=== PATIENT | male | born 1955 | race Hispanic/Latino ===

== ENCOUNTER → 2018-11-24 | Outpatient (CLI) | payer MEDICARE | END | disposition home or self-care (01) | LOC: SHCH 15:32 | PROVIDERS: ATTEND Internal Medicine Cardiovascular Disease | DX: I25.10 Atherosclerotic heart disease of native coronary artery without angina pectoris (principal); I10 Essential (primary) hypertension; I35.0 Nonrheumatic aortic (valve) stenosis | CPT/HCPCS: 93306 ==

== ENCOUNTER 2019-01-11 05:54 | Observation (INO) | payer MEDICARE ==
[2019-01-09 08:27] LABS: BASOPHILS % (AUTO) 0.7 % (0.0-5.0); EOSINOPHILS % (AUTO) 1.2 % (0.0-8.0); LYMPHOCYTES % (AUTO) 17.9 % (21.0-51.0); MEAN CORPUSCULAR HEMOGLOBIN 33.8 pg (27.0-33.0); MEAN CORPUSCULAR HGB CONC 34.1 g/dL (32.0-36.0); MEAN CORPUSCULAR VOLUME 99.1 fL (79-99); NEUTROPHILS % (AUTO) 72.2 % (40.0-77.0); NUCLEATED RED BLOOD CELLS 0.1 % (0.0-0.19); PLATELET COUNT (AUTO) 192 K/uL (130-400); RED BLOOD CELL COUNT(AUTO) 5.25 MIL/uL (4.50-6.20); RED CELL DISTRIBUTION WIDTH 14.1 % (11.0-15.5); WHITE BLOOD COUNT (AUTO) 10.1 K/uL (4.8-10.8)
[2019-01-09 08:30] LABS: APPEARANCE,URINE Clear (CLEAR); BILIRUBIN,URINE Negative (NEGATIVE); COLOR,URINE Yellow (YELLOW); GLUCOSE, URINE (UA) Negative (NEGATIVE); KETONES,URINE Negative (NEGATIVE); LEUKOCYTE ESTERASE ,URINE Negative (NEGATIVE); NITRATE,URINE Negative (NEGATIVE); OCCULT BLOOD,URINE Negative (NEGATIVE); PH,URINE 5.5 (5.0-8.0); PROTEIN,URINE Negative (NEGATIVE)
[2019-01-09 08:37] LABS: CREATININE 0.9 mg/dL (0.5-1.5); POTASSIUM 4.5 mmol/L (3.5-5.1)
[2019-01-09 08:40] LABS: PROTHROMBIN TIME 10.5 SEC (9.6-11.6)
[2019-01-09 09:09] VITALS: BP 134/63
[2019-01-11] VITALS (14 sets, daily range): BP systolic 114–142; BP diastolic 63–75
[~2019-01-11] VITALS: Ht 177.8 cm; Wt 87.9 kg
[~2019-01-11 05:54] MED LIST: ASPI-555 PO; ATOR10TA69 PO; SODIUM CHLORIDE 0.9% 500ML 500 ML IV SCH
[2019-01-11] MEDS ORDERED: SODIUM CHLORIDE 0.9% 1000ML 1,000 ML IV ONE (07:30)
[2019-01-11] MEDS ORDERED: IOHEXOL-350 50ML VIAL IV ONE (08:39)
[2019-01-11] MEDS ORDERED: IOHEXOL 350 MG/ML 100ML INFUS..BTL IV ONE (08:39)
[2019-01-11] MEDS ORDERED: LIDOCAINE HCL 2% 20ML ONE (08:39)
[2019-01-11] MEDS ORDERED: HEPARIN SODIUM 1000UNIT/ML 10ML VIAL ONE (08:39)
[2019-01-11] MEDS ORDERED: ASPIRIN 325MG EC TAB 325 MG TABLET.DR PO ONE (10:20)
[2019-01-11] MEDS ORDERED: CLOPIDOGREL BISULFATE 300 MG TAB ONE (10:20)
[2019-01-11] MEDS ORDERED: MORPHINE SULFATE 5 MG/ML VIAL IVP SCH (10:30)
[2019-01-11] MEDS ORDERED: ONDANSETRON HCL 4 MG/2 ML VIAL IVP SCH (10:30)
[2019-01-11] MEDS ORDERED: TEMAZEPAM 30 MG CAP PO PRN (10:30)
[2019-01-11] MEDS ORDERED: ONDANSETRON HCL 4 MG/2 ML VIAL IVP PRN (10:30)
[2019-01-11] MEDS ORDERED: ACETAMINOPHEN 325 MG TAB PO PRN (10:30)
[2019-01-11] MEDS ORDERED: ACETAMINOPHEN-CODEINE 300/30MG TAB PO SCH (12:13)
[2019-01-11] MEDS: CARVEDILOL 6.25 MG TABLET PO SCH (20:23)
[2019-01-11] MEDS ORDERED: ASPIRIN 81 MG EC TAB PO SCH (21:00)
[2019-01-11] MEDS ORDERED: ATORVASTATIN CALCIUM 10 MG TABLET PO SCH (21:00)
[2019-01-12 04:07] LABS: BASOPHILS % (AUTO) 0.7 % (0.0-5.0); EOSINOPHILS % (AUTO) 3.5 % (0.0-8.0); HEMATOCRIT 48.1 % (42-54); LYMPHOCYTES % (AUTO) 14.6 % (21.0-51.0); MEAN CORPUSCULAR HEMOGLOBIN 33.8 pg (27.0-33.0); MEAN CORPUSCULAR HGB CONC 33.8 g/dL (32.0-36.0); MEAN CORPUSCULAR VOLUME 99.9 fL (79-99); MONOCYTES % (AUTO) 9.8 % (3.0-13.0); NEUTROPHILS % (AUTO) 71.4 % (40.0-77.0); PLATELET COUNT (AUTO) 166 K/uL (130-400); RED BLOOD CELL COUNT(AUTO) 4.81 MIL/uL (4.50-6.20); RED CELL DISTRIBUTION WIDTH 13.7 % (11.0-15.5); WHITE BLOOD COUNT (AUTO) 11.9 K/uL (4.8-10.8)
[2019-01-12 04:27] LABS: CREATININE 0.9 mg/dL (0.5-1.5); MAGNESIUM 2.1 mg/dL (1.80-2.40); PHOSPHORUS 2.9 mg/dL (2.5-4.9)
[2019-01-12 04:40] VITALS: BP 111/64
[2019-01-12 07:47] VITALS: BP 110/63
[2019-01-12] MEDS ORDERED: CLOPIDOGREL BISULFATE 75 MG TAB PO SCH (09:00)
[2019-01-12 09:14] VITALS: BP 110/63
[2019-01-12] MEDS: CARVEDILOL 6.25 MG TABLET PO SCH (09:14)
[2019-01-12] MEDS ORDERED: CLOP75TA14 PO (09:32)
[2019-01-12] MEDS ORDERED: CARV3.1262 PO (09:33)
--- NOTE | 2019-01-12 10:00 | NUR ---
DISCHARGE PT discharged home as ordered. Peripheral IV removed, catheter intact upon removal. Instructions given on new meds and appointment with Dr. Dixon in 2 weeks, verbalized understanding. Taken to lobby in wheelchair, in no distress. Spouse at bedside.
== END 2019-01-12 10:20 | disposition home or self-care (01) ==
LOC: DAH 05:54 → DAHIP 05:55 → DAH 05:55 → 2DH 13:25
PROVIDERS: ADMIT Internal Medicine Critical Care Medicine; ATTEND Internal Medicine Critical Care Medicine
DX: I25.119 Atherosclerotic heart disease of native coronary artery with unspecified angina pectoris (principal); E78.00 Pure hypercholesterolemia, unspecified; E78.5 Hyperlipidemia, unspecified; I73.9 Peripheral vascular disease, unspecified; J44.9 Chronic obstructive pulmonary disease, unspecified; J84.10 Pulmonary fibrosis, unspecified; F17.200 Nicotine dependence, unspecified, uncomplicated; Z79.02 Long term (current) use of antithrombotics/antiplatelets; Z82.49 Family history of ischemic heart disease and other diseases of the circulatory system; Z79.01 Long term (current) use of anticoagulants
CPT/HCPCS: 36415 ×3; 71045; 80048 ×2; 80061; 81003; 83735; 84100; 85025 ×2; 85610; 85730 ×2; 93005 ×2; 93458; A4215; A4216; A4221; A4222; A4223 ×2; A4606; A4663; C1769 ×3; C1874; C1876; C1887; C1894 ×2; C9600; G0378 ×24; J1644 ×3; J3490; J7030; Q9967 ×2